=== PATIENT | female | born 1985 | race Caucasian/White ===

== ENCOUNTER 2023-08-22 08:10 | Emergency (ER) | payer BC ==
[~2023-08-22] VITALS: Ht 165.1 cm; Wt 61.2 kg
[2023-08-22] MEDS ORDERED: IV NS 0.9% 1,000 ML BAG IV ONE (08:30)
[2023-08-22] MEDS ORDERED: KETOROLAC TROMETHAMINE INJ 30 MG/ML VIAL IV ONE ×2 (08:30→10:30)
[2023-08-22] MEDS ORDERED: KETOROLAC TROMETHAMINE INJ 30 MG/ML VIAL ONE (08:33)
[2023-08-22 08:37] LABS: BASOPHILS % (AUTO) 1.1 % (0.0-2.0); EOSINOPHILS # (AUTO) 0.1 K/uL (0.0-0.7); EOSINOPHILS % (AUTO) 3.7 % (0.0-6.0); HEMATOCRIT 39 % (33-45); HEMOGLOBIN 13.1 g/dL (11.5-14.8); LYMPHOCYTES # (AUTO) 1.4 K/uL (0.8-4.8); LYMPHOCYTES % (AUTO) 35.7 % (20.0-44.0); MEAN CORPUSCULAR HEMOGLOBIN 33 PG (26.0-33.0); MEAN CORPUSCULAR HGB CONC 33 g/dl (31.0-36.0); MEAN CORPUSCULAR VOLUME 97 fL (82-100); MONOCYTES # (AUTO) 0.3 K/uL (0.1-1.30); NEUTROPHILS % (AUTO) 51.5 % (43.0-81.0); PLATELET COUNT (AUTO) 197 K/uL (150-450); RED BLOOD CELL COUNT(AUTO) 4.03 MIL/uL (4.0-5.2); RED CELL DISTRIBUTION WIDTH 13.2 % (11.5-15.0); WHITE BLOOD COUNT (AUTO) 3.8 K/uL (4.3-11.0)
[2023-08-22] MEDS ORDERED: MORPHINE SULFATE INJ 2 MG/ML DISP.SYRIN ONE (08:43)
[2023-08-22 08:56] LABS: ALBUMIN 4.3 g/dL (3.4-5.0); BILIRUBIN,DIRECT 0.1 mg/dL (0.0-0.2); BILIRUBIN,TOTAL 0.6 mg/dL (0.2-1.0); CALCIUM, SERUM 8.7 mg/dL (8.5-10.1); CREATININE 0.9 mg/dL (0.6-1.3); POTASSIUM 3.9 mmol/L (3.5-5.1); TOTAL PROTEIN, SERUM 7.7 g/dL (6.4-8.2)
[2023-08-22 08:59] LABS: APPEARANCE,URINE SLIGHTLY CLOUDY (CLEAR); BILIRUBIN,URINE 1+ (NEGATIVE); BLOOD, URINE 3+ Ery/uL (NEGATIVE); COLOR,URINE DARK YELLOW (YELLOW); KETONES,URINE NEGATIVE (NEGATIVE); LEUKOCYTE ESTERASE ,URINE NEGATIVE (NEGATIVE); NITRITE, URINE POSITIVE (NEGATIVE); PROTEIN,URINE 2+ mg/dl (NEGATIVE); UGLUCOSE TRACE mg/dL (NEGATIVE)
[2023-08-22] MEDS ORDERED: MORPHINE SULFATE INJ 2 MG/ML DISP.SYRIN IV ONE (09:00)
[2023-08-22 09:03] LABS: PREGNANCY TEST URINE QUAL NEGATIVE (NEGATIVE)
[2023-08-22 09:22] LABS: ADD URINE CULTURE YES; BACTERIA,URINE Few /HPF (None Seen); RBC,URINE 81-100 /HPF (0-2); WBC,URINE 0-2 /HPF (0-3)
[2023-08-22 09:23] LABS: SQUAMOUS EPITHELIAL CELL,UR Few /HPF (None Seen)
[2023-08-22] MEDS ORDERED: TAMS-12 PO (09:43)
[2023-08-22] MEDS ORDERED: CIPR-262 PO (09:43)
[2023-08-22] MEDS ORDERED: CIPROFLOXACIN HCL 500 MG TABLET PO ONE (10:00)
[2023-08-22] MEDS ORDERED: TAMSULOSIN 0.4 MG CAP.SR.24H PO ONE (10:00)
[2023-08-22] MEDS ORDERED: KETOROLAC TROMETHAMINE 15 MG/ML VIAL ONE (10:06)
[2023-08-22] MEDS ORDERED: TAMSULOSIN 0.4 MG CAP.SR.24H ONE (10:08)
[2023-08-22] MEDS ORDERED: CIPROFLOXACIN HCL 500 MG TABLET ONE (10:08)
[2023-08-22 11:05] VITALS: BP 107/73; TEMP 98; O2SAT 100
== END 2023-08-22 11:06 | disposition home or self-care (01) ==
LOC: ER 08:10
DX: N20.0 Calculus of kidney (principal); R10.2 Pelvic and perineal pain
CPT/HCPCS: 99285; 74176; 96374; 96361; 96375; 96376; 85025; 80048; 87086; 83690; 80076; 84703; 81001; 36415; 84702; J1885 ×2; J7030; A6253; J2270